=== PATIENT | female | born 1985 | race Caucasian/White ===

== ENCOUNTER 2021-12-06 09:35 | Outpatient (NON) | payer OTHER, SELFPAY | END 2021-12-06 09:36 | disposition home or self-care (01) | LOC: CHSLAB 09:38 | PROVIDERS: Visit Provider Nurse Practitioner Family | DX: Z12.4 Encounter for screening for malignant neoplasm of cervix (principal); Z13.89 Encounter for screening for other disorder | CPT/HCPCS: 87624; 88175; G0145 ==

== ENCOUNTER 2023-12-09 19:59 | Emergency (ER) | payer OTHER, SELFPAY ==
--- NOTE | ~2023-12-09 | XR_ITS ---
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 Comparison: None. RESULT: Lines, tubes, and devices: None. Lungs and pleura: Low volumes with crowding. Hazy subsegmental right infrahilar opacity. Lungs other cam clear. Cardiomediastinal silhouette: Stable. Other: No acute osseous or upper abdominal finding. IMPRESSION: Subsegmental right infrahilar atelectasis versus pneumonia. Reviewed, dictated and finalized at location [employer]
[2023-12-09 20:00] VITALS: BP 124/55; PULSE 89; RESP 18; TEMP 36.5; O2SAT 96
--- NOTE | 2023-12-09 20:06 | ED.URI ---
HPI - URI/Sore Throat General Chief Complaint: Upper Respiratory Infection Stated Complaint: Cough/Runny Nose Time Seen by Provider: 12/09/23 20:04 Source: patient Mode of arrival: ambulatory Limitations: no limitations History of Present Illness HPI Narrative: Patient is a 38-year-old female with cough and congestion and exposure to influenza B. she has been sick for 1 week. She has cough with shortness of breath. There is some chest discomfort with coughing. MD elicited complaint: cough and nasal congestion Onset (ago): week(s) (1) Consistency: constant Severity: moderate Pain scale (0-10): 2 Description of mucous: clear, watery, yellow and green Able to tolerate fluids by mouth: Yes Exacerbating factors: nothing Relieving factors: nothing Context: sick contacts Associated symptoms: fever, chills, myalgias, headache, rhinorrhea, nasal congestion, cough, chest pain and shortness of breath Treatments prior to arrival: none Related Data Allergies Allergy/AdvReac Type Severity Reaction Status Date / Time No Known Allergies Allergy Verified 12/09/23 20:25 Review of Systems Review of Systems: All systems reviewed & are unremarkable except as noted in HPI and below Constitutional: Constitutional: Reports no additional constitutional complaints Eyes: Eyes: Reports no additional eye complaints ENT: Reports system reviewed and no additional complaints, except as documented Cardiovascular: Cardiovascular: Reports no additional cardiovascular complaints Respiratory: Respiratory: Reports no additional respiratory complaints Gastrointestinal: Gastrointestinal: Reports no additional gastrointestinal complaints Genitourinary: Genitourinary: Reports no additional female genitourinary complaints Musculoskeletal: Musculoskeletal: Reports no additional musculoskeletal complaints Integumentary/Breasts: Skin/Breast: Reports system reviewed and no additional complaints, except as docu Neurologic: Reports system reviewed and no additional complaints, except as documented Psychiatric: Psychiatric: Reports no additional psychiatric complaints Endocrine: Endocrine: Reports no additional endocrine complaints Hematologic/Lymphatic: Hematologic/Lymphatic: Reports no additional hematologic/lymphatic complaints Allergic/Immunologic: Allergic/Immunologic: Reports no additional allergic/immunologic complaints PMFSH Past Medical History Medical History Encounter for counseling regarding contraception Encounter for IUD removal Encounter for well woman exam Family History Family History Father Malignant neoplasm of prostate Diabetes mellitus Hypertension Heart disease Grandparent Thyroid disorder Heart disease Diabetes mellitus Social History Social History Smoking status: Former smoker Alcohol intake: current Alcohol use details: social Substance use: never Substance use type: does not use Lack of Transportation: No Lack of Food: Never True Current Housing: I Have Housing Concerned About Future Housing: No Difficulty Paying Gas/Electric Bills: No Difficulty Paying for Meds: No Currently Unemployed: No Education: Trade/Vocational Certificate Living arrangements: with family Occupation/Education: occupation 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
[2023-12-09 20:54] LABS: SARS-CoV-2 RNA PCR Negative (Negative)
[2023-12-09 20:55] LABS: Influenza A QL RT-PCR Negative (Negative); Influenza B QL RT-PCR Positive (Negative); RSV RNA, RT-PCR Negative (Negative)
[2023-12-09 21:03] VITALS: BP 116/81; PULSE 90; RESP 18; TEMP 36.8; O2SAT 97
[2023-12-09] MEDS: levoFLOXacin 500 MG TABLET PO (21:22)
[2023-12-09] MEDS: predniSONE 20 MG TABLET PO (21:22)
== END 2023-12-09 21:30 | disposition home or self-care (01) ==
PROVIDERS: Emergency Provider Emergency Medicine; PCP Nurse Practitioner Family
DX: J10.1 Influenza due to other identified influenza virus with other respiratory manifestations (principal); J18.9 Pneumonia, unspecified organism; Z20.822 Contact with and (suspected) exposure to COVID-19; Z87.891 Personal history of nicotine dependence
CPT/HCPCS: 71045; 87637; 99283; A9270; J7512

== ENCOUNTER 2024-08-21 17:30 | Emergency (ER) | payer OTHER, SELFPAY ==
[2024-08-21 17:34] VITALS: BP 129/85; PULSE 90; RESP 18; TEMP 36.3; O2SAT 100
--- NOTE | 2024-08-21 17:37 | ED.EXTPRO ---
HPI - Extremity Problem General Chief complaint: Extremity Problem,Nontraumatic Stated complaint: shoulder pain Source: patient Mode of arrival: ambulatory Limitations: no limitations History of Present Illness HPI Narrative: This is a 39-year-old female with no significant past medical history presents with right shoulder discomfort patient denies any injury has good range of motion with no numbness or tingling no neck pain or neck stiffness. No fever chills. No chest pain or shortness of breath no nausea vomiting. Complaint: extremity pain Onset (ago): day(s) Pain Consistency: intermittent Location: right Severity scale (1-10): 5 Quality: aching Radiation: none Relieving factors: immobilization Exacerbating factors: palpation Associated symptoms: denies other symptoms Related Data Allergies Allergy/AdvReac Type Severity Reaction Status Date / Time No Known Allergies Allergy Verified 12/09/23 20:25 Review of Systems Review of Systems: All systems reviewed & are unremarkable except as noted in HPI and below PMFSH Past Medical History Medical History Encounter for counseling regarding contraception Encounter for IUD removal Encounter for well woman exam Family History Family History Father Malignant neoplasm of prostate Diabetes mellitus Hypertension Heart disease Grandparent Thyroid disorder Heart disease Diabetes mellitus Social History Social History Smoking status: Former smoker Alcohol intake: current Alcohol use details: social Substance use: never Substance use type: does not use Lack of Transportation: No Lack of Food: Never True Current Housing: I Have Housing Concerned About Future Housing: No Difficulty Paying Gas/Electric Bills: No Difficulty Paying for Meds: No Currently Unemployed: No Education: Trade/Vocational Certificate Living arrangements: with family Occupation/Education: occupation 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 Agree to blood products: Yes Exam Const: General: healthy appearing and no acute distress Nutritional Appearance: well nourished Orientation/consciousness: patient oriented x3 Neck: Neck: normal visual inspection, no lymphadenopathy and no meningeal signs Chest: Chest palpation & inspection: normal inspection of the chest Resp: Effort & Inspection: normal respiratory effort Auscultation: clear to auscultation bilaterally Cardio: Rate: regular rate Rhythm: regular rhythm GI: GI Palp: Yes Soft to palpation Auscultation: normal bowel sounds Skin: General skin exam: normal color Rashes: no rashes Wounds: no wounds Neuro: General: patient oriented x3, moves all extremities, no meningeal signs and no focal motor deficits Extrem: Other: Good range of motion in the right shoulder with some mild point tenderness in the bicipital groove. Course Course Emergency Course: Patient with some pain for the last 2 to 3 days right shoulder has good range of motion no known injuries no numbness or tingling no radiation of her pain no neck pain. 60mg IM Toradol administered after reassessment patient's pain level as above. Vital Signs Vital signs: Vital Signs Temperature 36.3 C L 08/21/24 17:34 Pulse Rate 90 08/21/24 17:34 Respiratory Rate 18 08/21/24 17:34 Blood Pressure 129/85 08/21/24 17:34 Pulse Oximetry 100 08/21/24 17:34 Oxygen Delivery Room Air 08/21/24 17:34 Temperature 36.3 C L 08/21/24 17:34 Pulse Rate 90 08/21/24 17:34 Respiratory Rate 18 08/21/24 17:34 Blood Pressure 129/85 08/21/24 17:34 Pulse Oximetry 100 08/21/24 17:34 Oxygen Delivery Room Air 08/21/24 17:34 Critical Care Time Critical Care Time Critical Care Time: No Discharge Plan Discharge Clinical Impression: Rotator cuff strain Patient Disposition: Home, Self-Care Condition: Stable Instructions: Antibiotic Form, Rotator Cuff Injury (ED) Additional Instructions: take medication as prescribed and follow with primary within the next 2 to 3 days for further evaluation and treatment. Prescriptions: New naproxen 500 mg tablet 500 mg PO BID Qty: 14 0RF No Action prednisone 20 mg tablet 40 mg PO DAILY 3 Days Qty: 6 0RF levofloxacin 500 mg tablet 500 mg PO DAILY 7 Days Qty: 7 0RF Follow-up/Referrals: UNKNOWN,DOCTOR [Primary Care Provider] - Time of Disposition: 17:42
[2024-08-21] MEDS: KETOROLAC (*BKC) 60 MG/2 ML VIAL IM (17:41)
== END 2024-08-21 17:59 | disposition home or self-care (01) ==
LOC: CHSED 17:42
PROVIDERS: Emergency Provider Emergency Medicine; PCP Nurse Practitioner Family
DX: S46.011A Strain of muscle(s) and tendon(s) of the rotator cuff of right shoulder, initial encounter (principal); Z87.891 Personal history of nicotine dependence; X58.XXXA Exposure to other specified factors, initial encounter
CPT/HCPCS: 96372; 99283; J1885

== ENCOUNTER 2025-07-06 10:03 | Emergency (ER) | payer OTHER, SELFPAY ==
[2025-07-06 10:04] VITALS: BP 127/99; PULSE 81; RESP 16; TEMP 37.1; O2SAT 100
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
--- OUTSIDE RECORDS SUMMARY | 2025-07-06 11:06 | XMS_ITS | Clinical Summary ---
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 Gender Identity Not on file Sexual Orientation Not on file Plan of Treatment Health Maintenance Due Date Last Done Comments Cervical Cancer Screening Pa p Smear (Age 30 to 64) Every 3 Years 1984 Annual Physical 1987 Hepatitis C 2002 DTaP, Tdap and Td Vaccines ( 1 - Tdap) 2003 Hepatitis B Vaccines (1 of 3 - 19+ 3-dose series) 2003 HPV Vaccines (1 - 3-dose SCD M series) 2011 Mammogram Screening 2024 COVID-19 Vaccine ( - 2023-2 5 season) 2025 Cervical Cancer Screening Pa p with HPV Testing (Age 30 to 64) Every 5 Years 12/06/2026 12/06/2021 Cervical Cancer Screening with HPV 12/06/2026 Meningococcal B Vaccine Aged Out No l onger eligible based on patient's age to complete this topic Meningococcal Vaccine Aged Out No pillo james eligible based on patient's age to complete this topic Pneumococcal Vaccine: Pediat rics (0 to 5 Years) and At-Risk Patients (6 to 49 Years) Aged Out No longer eligi ble based on patient's age to complete this topic RSV Immunizations Under 20 Months Aged Out No longer eligible based on patient's age to complete this topic Procedures Procedure Name Priority Date/Time Associated Diagnosis Comments HUMAN PAPILLOMAVIRUS, HIGH-RISK TYPES Routine 12/06/2021 8:00 AM RETAIL FINANCIAL ANALYST from Last 3 Months or Most Recently Relevant to Health Maintenance Results * HUMAN PAPILLOMAVIRUS, HIGH-RISK TYPES (12/06/2021 8:00 AM RETAIL FINANCIAL ANALYST) SPEC DESCRIPTION CERVIX 12/09/19 2:29 PM RETAIL FINANCIAL ANALYST [facility] HPV DNA HIGH RISK NEGATIVE NEGATIVE 12/10/2021 11:16 AM RETAIL FINANCIAL ANALYST [facility] Comment:SEE CYTOLOGY REPORT 12/06/2021 8:00 AM RETAIL FINANCIAL ANALYST Nanci Barkley CHARGE ENTRY PATHOLOGY/CYTOLOGY ORDERABL ES Final Result [facility] [address] [place] [address], from Last 3 Months or Most Recently Relevant to Health Maintenance
--- OUTSIDE RECORDS SUMMARY | 2025-07-06 11:54 | XMS_ITS | Clinical Summary ---
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 HPV DNA HIGH RISK NEGATIVE NEGATIVE 12/10/2021 11:16 AM SUPPLY CHAIN INTERN [facility] Comment:SEE CYTOLOGY REPORT 12/06/2021 8:00 AM SUPPLY CHAIN INTERN Nanci Barkley PRODUCTION ADMINISTRATOR PATHOLOGY/CYTOLOGY ORDERABL ES Final Result [facility] [address] [place] [address], from Last 3 Months or Most Recently Relevant to Health Maintenance
== END 2025-07-06 10:20 | disposition home or self-care (01) ==
LOC: CHSED 10:45
PROVIDERS: Emergency Provider Family Medicine; PCP Nurse Practitioner Family
DX: T23.121A Burn of first degree of single right finger (nail) except thumb, initial encounter (principal); Z87.891 Personal history of nicotine dependence; X12.XXXA Contact with other hot fluids, initial encounter
CPT/HCPCS: 99282